=== PATIENT | female | born 1970 | race Caucasian/White ===

== ENCOUNTER → 2017-04-08 | Outpatient (CLI) | payer SELFPAY ==
[2017-04-08 12:41] LABS: ABSOLUTE BASOPHILS # (AUTO) 0.1 10^3/uL (0.0-0.2); ABSOLUTE EOSINOPHILS # (AUTO) 0.3 10^3/uL (0.0-0.6); ABSOLUTE LYMPHOCYTES (AUTO) 2.5 10^3/uL (0.5-4.7); ABSOLUTE MONOCYTES (AUTO) 0.9 10^3/uL (0.1-1.4); ABSOLUTE NEUT (AUTO) 11.7 10^3/uL (1.7-8.2); BASOPHILS % (AUTO) 0.6 % (0-2); HEMATOCRIT 40.8 % (36.0-47.0); HEMOGLOBIN 13.8 g/dL (12.0-15.5); MEAN CORPUSCULAR HEMOGLOBIN 30.3 pg (27.0-33.4); MEAN CORPUSCULAR HGB CONC 33.8 g/dL (32.0-36.0); MEAN CORPUSCULAR VOLUME 90 fl (80-97); MONOCYTES % (AUTO) 5.7 % (3-13); PLATELET COUNT 228 10^3/uL (150-450); RED BLOOD COUNT 4.55 10^6/uL (3.72-5.28); SEGMENTED NEUTROPHILS % (AUTO) 75.7 % (42-78); TOTAL CELLS COUNTED % (AUTO) 100 %; WHITE BLOOD COUNT 15.5 10^3/uL (4.0-10.5)
== END ==
LOC: OD 12:19
PROVIDERS: ATTEND Family Medicine
DX: D72.829 Elevated white blood cell count, unspecified (principal)
CPT/HCPCS: 36415; 85025

== ENCOUNTER 2017-04-11 18:58 | Emergency (ER) | payer SELFPAY ==
[2017-04-11 19:09] VITALS: BP 149/86
--- NOTE | 2017-04-11 20:21 | ER Document Report ---
ED Medical Screen (RME) - General Chief Complaint: Abnormal Lab Results Stated Complaint: ABNORMAL LABS Time Seen by Provider: 04/11/17 20:20 Notes: Patient states that she has been having numerous issues. She has been dizzy and lightheaded. She has had some shortness of breath. She has had chest pain back pain and lung pain. She has choking when she drinks cold drinks. She also states that she feels dizzy and has recently noticed that "my eyes looked funny". She also states that she has been fatigued. She states she is seen her doctor for this several times and has had multiple blood draws and every time her white blood cell count is elevated. She states she was told today to come here by her primary care physician for further evaluation. TRAVEL OUTSIDE OF THE [place] IN LAST 30 DAYS: No - Related Data Allergies/Adverse Reactions: codeine Allergy (Verified 04/11/17 19:01) Sulfa (Sulfonamide Antibiotics) Allergy (Verified 04/11/17 19:01) Physical Exam - Vital signs Vitals: Temp Pulse Resp BP Pulse Ox 98.1 F 75 20 149/86 H 100 04/11/17 19:07 04/11/17 19:07 04/11/17 19:07 04/11/17 19:07 04/11/17 19:07 Course - Vital Signs Vital signs: Temp Pulse Resp BP Pulse Ox 98.1 F 75 20 149/86 H 100 04/11/17 19:07 04/11/17 19:07 04/11/17 19:07 04/11/17 19:07 04/11/17 19:07
[2017-04-11 20:50] LABS: ABSOLUTE BASOPHILS # (AUTO) 0.2 10^3/uL (0.0-0.2); ABSOLUTE EOSINOPHILS # (AUTO) 0.4 10^3/uL (0.0-0.6); ABSOLUTE LYMPHOCYTES (AUTO) 3.9 10^3/uL (0.5-4.7); ABSOLUTE MONOCYTES (AUTO) 1.1 10^3/uL (0.1-1.4); ABSOLUTE NEUT (AUTO) 9.3 10^3/uL (1.7-8.2); BASOPHILS % (AUTO) 1.2 % (0-2); EOSINOPHILS % (AUTO) 2.4 % (0-6); HEMATOCRIT 44.9 % (36.0-47.0); HEMOGLOBIN 14.9 g/dL (12.0-15.5); LYMPHOCYTES % (AUTO) 26.4 % (13-45); MEAN CORPUSCULAR HEMOGLOBIN 30.1 pg (27.0-33.4); MEAN CORPUSCULAR HGB CONC 33.1 g/dL (32.0-36.0); MEAN CORPUSCULAR VOLUME 91 fl (80-97); MONOCYTES % (AUTO) 7.2 % (3-13); PLATELET COUNT 230 10^3/uL (150-450); RED BLOOD COUNT 4.95 10^6/uL (3.72-5.28); RED CELL DISTRIBUTION WIDTH 13.3 % (11.5-14.0); SEGMENTED NEUTROPHILS % (AUTO) 62.8 % (42-78); TOTAL CELLS COUNTED % (AUTO) 100 %; WHITE BLOOD COUNT 14.9 10^3/uL (4.0-10.5)
[2017-04-11 21:02] LABS: APPEARANCE,URINE SLIGHTLY-CLOUDY; BILIRUBIN,URINE NEGATIVE (NEGATIVE); COLOR,URINE YELLOW; GLUCOSE, URINE NEGATIVE (NEGATIVE); KETONES,URINE NEGATIVE (NEGATIVE); LEUKOCYTE ESTERASE,URINE TRACE (NEGATIVE); NITRITE,URINE NEGATIVE (NEGATIVE); PROTEIN,URINE NEGATIVE (NEGATIVE); URINE SPECIFIC GRAVITY 1.019
[2017-04-11 21:06] LABS: ALANINE AMINOTRANSFERASE 31 U/L (9-52); ALBUMIN 3.8 g/dL (3.5-5.0); ALKALINE PHOSPHATASE 92 U/L (38-126); ANION GAP 8 (5-19); ASPARTATE AMINO TRANSFERASE 19 U/L (14-36); BILIRUBIN,DIRECT 0.3 mg/dL (0.0-0.4); BILIRUBIN,TOTAL 0.3 mg/dL (0.2-1.3); BLOOD UREA NITROGEN 17 mg/dL (7-20); CALCIUM 9.7 mg/dL (8.4-10.2); CARBON DIOXIDE 29 mmol/L (22-30); CHLORIDE 105 mmol/L (98-107); GLUCOSE 97 mg/dL (75-110); POTASSIUM 4.1 mmol/L (3.6-5.0); SODIUM 142.3 mmol/L (137-145)
[2017-04-11] MEDS ORDERED: IPRATROPIUM/ALBUTEROL 0.5-2.5 MG/3 ML AMPUL NEB ONE (22:54)
--- NOTE | 2017-04-11 22:54 | ER Document Report ---
ED General - General Mode of Arrival: Ambulatory Information source: Patient TRAVEL OUTSIDE OF THE [place] IN LAST 30 DAYS: No - HPI Patient complains to provider of: Mid thoracic back pain Onset: Other - see notes above Associated symptoms: Other - see notes above <LUIGI FRAZIER - Last Filed: 04/11/17 23:42> <YOMAIRAHA MURALI - Last Filed: 04/12/17 01:57> - General Chief Complaint: Abnormal Lab Results Stated Complaint: ABNORMAL LABS Time Seen by Provider: 04/11/17 20:20 Notes: 46 year old female with history of hypothyroidism and emphysema presents to the ED complaining of right scapular pain that radiates to the right axilla that stated a few days ago. Patient reports it hurts to breath and that her clothes brushing against her back causes a burning sensation. Patient feels tight and states that she is unable to take a deep breath. Patient additionally complains of throat discomfort describing it as 'swollen' that has been present for 1 month. Patient also complains of hemopytsis. Patient was on antibiotics 1 month ago and was sent to the ED by her primary care provider for an elevated white blood count. 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, Other - zaria's disease Renal/ Medical History: Denies: Hx Peritoneal Dialysis <LUIGI FRAZIER - Last Filed: 04/11/17 23:42> Review of Systems - Review of Systems Constitutional: See HPI, Recent illness - was on antibiotics 1 month ago EENT: See HPI, Throat swelling Cardiovascular: No symptoms reported Respiratory: See HPI, Cough, Hemoptysis Gastrointestinal: No symptoms reported Genitourinary: No symptoms reported Female Genitourinary: No symptoms reported Musculoskeletal: See HPI, Back pain - right scapular radiating to right axilla Skin: No symptoms reported Hematologic/Lymphatic: No symptoms reported Neurological/Psychological: No symptoms reported -: Yes All other systems reviewed and negative <LUIGI FRAZIER - Last Filed: 04/11/17 23:42> Physical Exam - General General appearance: Alert In distress: None - HEENT Head: Normocephalic, Atraumatic Eyes: Normal Extraocular movements intact: Yes Pupils: PERRL - Respiratory Respiratory status: No respiratory distress Breath sounds: Decreased air movement - bilaterally. No: Wheezing - Cardiovascular Rhythm: Regular Heart sounds: Normal auscultation - Abdominal Inspection: Normal - Back Back: Tender - reporducible tenderness to palpation of the right medial scapula and inferior axillary area.. No: Normal - Extremities General upper extremity: Normal inspection, Normal color General lower extremity: Normal inspection, Normal color - Neurological Neuro grossly intact: Yes Cognition: Normal Orientation: AAOx4 [place] Coma Scale Eye Opening: Spontaneous [place] Coma Scale Verbal: Oriented [place] Coma Scale Motor: Obeys Commands [place] Coma Scale Total: 15 Speech: Normal - Psychological Associated symptoms: Normal affect, Normal mood - Skin Skin Temperature: Warm Skin Moisture: Dry Skin Color: Normal <LUIGI FRAZIER - Last Filed: 04/11/17 23:42> - Vital signs Vitals: Temp Pulse Resp BP Pulse Ox 98.1 F 75 20 149/86 H 100 04/11/17 19:07 04/11/17 19:07 04/11/17 19:07 04/11/17 19:07 04/11/17 19:07 Course - Laboratory Result Diagrams: 04/11/17 20:37 04/11/17 20:37 <LUIGI FRAZIER - Last Filed: 04/11/17 23:42> - Laboratory Result Diagrams: 04/11/17 20:37 04/11/17 20:37 - Diagnostic Test Radiology reviewed: Reports reviewed <HA BURNETTE - Last Filed: 04/12/17 01:57> - Re-evaluation Re-evalutation: 04/12/17 01:00 Patient is a 46-year-old female who comes in complaining of right sided back pain, pleuritic pain, throat swelling sensation, and swelling in her neck. On exam, patient does have some possible cervical lymphadenopathy right greater than left. She has a clear oropharynx and no difficulty breathing, talking or swallowing. Patient has reproducible right back pain. Blood work did show some leukocytosis although it is decreasing compared to blood work from 1 . Thyroid and troponin were done as well as EKG with no acute findings. Patient also had a CTA to look for underlying cause of her symptoms. Thyroid appears normal and no evidence for PE. Patient does have a lung nodule which she has been instructed to follow-up with. Patient is upset about her weight time in the emergency department. She also has told the nurse that I do not just "have a cold." I have explained to the patient that I am trying to find the underlying cause of her problems and if there is something dangerous causing them; I have not been able to find anything tonight that appears dangerous or requires treatment with antibiotics or blood thinners. Patient will be discharged home with a copy of her CT and blood work. She is to follow-up with her doctor. Walking out of the room while being discharged. (HA BURNETTE) - Vital Signs Vital signs: Temp Pulse Resp BP Pulse Ox 98.1 F 75 20 149/86 H 100 04/11/17 19:07 04/11/17 19:07 04/11/17 19:07 04/11/17 19:07 04/11/17 19:07 - Laboratory Laboratory results interpreted by me: 04/11/17 04/11/17 20:37 20:37 WBC 14.9 H Absolute Neutrophils 9.3 H Urine Blood SMALL H Urine Urobilinogen 2.0 H Ur Leukocyte Esterase TRACE H Discharge <LUIGI FRAZIER - Last Filed: 04/11/17 23:42> <HA BURNETTE - Last Filed: 04/12/17 01:57> - Discharge Clinical Impression: Upper back pain on right side Leukocytosis Qualifiers: Leukocytosis type: unspecified Qualified Code(s): D72.829 - Elevated white blood cell count, unspecified Condition: Stable Disposition: HOME, SELF-CARE Instructions: Leukocytosis ([facility]), Upper Back Strain ([facility]) Additional Instructions: Please follow-up with your doctor this week. Please take a copy of your CT scan and blood work with you. Forms: Smoking Cessation Education Referrals: NEERAJ SIERRA MD [Primary Care Provider] - Follow up as needed Scribe Attestation: 04/12/17 01:57 I personally performed the services described in the documentation, reviewed and edited the documentation which was dictated to the scribe in my presence, and it accurately records my words and actions. (HA BURNETTE) Scribe Documentation - Scribe Written by Scribe:: Barbie Barrera, 04/11/2017 [id number] acting as scribe for :: Yomiara <LUIGI FRAZIER - Last Filed: 04/11/17 23:42>
--- NOTE | 2017-04-12 00:30 | RADIOLOGY REPORT (SQ) ---
EXAM DESCRIPTION: CTA of the chest per PE protocol with contrast. CLINICAL HISTORY: pleuritic CP COMPARISON: None Available. TECHNIQUE: CTA of the chest obtained following the uncomplicated intravenous administration of 100.1 mL Isovue-370. 3-D/MIP reformatted images of the chest available for evaluation. FINDINGS: Chest: Mediastinal windows demonstrate an excellent contrast bolus. No pulmonary embolus identified. Visualized thyroid gland is unremarkable. Great vessels have normal anatomic configuration. No cardiomegaly, coronary artery atherosclerosis, or pericardial effusion. No abnormalities of the esophagus. Scattered mediastinal lymph nodes are not enlarged by CT criteria. Lung windows demonstrate no consolidation, pneumothorax, or pleural effusion. No abnormalities of the visualized trachea or airways. Solid 6 mm nodule in the left upper lobe best seen on image #16. Paraseptal emphysematous changes. Limited images of the upper abdomen demonstrate no abnormalities of the visualized liver, spleen, pancreas, adrenal glands, gallbladder, or kidneys. No destructive osseous lesions. DLP: 348.57 mGycm IMPRESSION: 1. No pulmonary embolus identified. 2. 6 mm solid pulmonary nodule in the left upper lobe. CT of the chest in 6 months recommended. This exam was performed according to our departmental dose-optimization program, which includes automated exposure control, adjustment of the mA and/or kV according to patient size and/or use of iterative reconstruction technique.
--- NOTE | 2017-04-12 06:37 | EKG REPORT ---
SEVERITY:- BORDERLINE ECG - SINUS RHYTHM BORDERLINE T ABNORMALITIES, ANTERIOR LEADS : Confirmed by: Virgil Benson MD 12-Apr-2017 06:37:05
== END 2017-04-12 01:11 | disposition home or self-care (01) ==
LOC: ER 18:58
DX: M54.6 Pain in thoracic spine (principal); D72.829 Elevated white blood cell count, unspecified; M25.511 Pain in right shoulder; E03.9 Hypothyroidism, unspecified; F17.200 Nicotine dependence, unspecified, uncomplicated; Z88.6 Allergy status to analgesic agent; Z88.2 Allergy status to sulfonamides
CPT/HCPCS: 93005; 94640; 99284; 36415; 84443; 85025; 80053; 81001; 84484; 71275; 93010; J7620